=== PATIENT | female | born 1985 | race Caucasian/White ===

== ENCOUNTER 2024-05-07 10:51 | Inpatient (IN) | payer OTHER ==
[~2024-05-07] VITALS: Ht 157.5 cm; Wt 70.3 kg
[2024-05-07 12:33] LABS: CARBON DIOXIDE 26 mEq/L (21-32); CHLORIDE 101 mEq/L (98-107); POTASSIUM 3.4 mEq/L (3.5-5.1); SODIUM 133 mEq/L (136-145)
[2024-05-07 12:34] LABS: CALCIUM 8.4 mg/dL (8.7-10.4)
[2024-05-07 12:39] LABS: CREATININE 0.6 mg/dL (0.6-1.0); GLUCOSE 154 mg/dL (70-105); UREA NITROGEN BLOOD 7 mg/dL (9-23)
[2024-05-07 12:40] LABS: ALANINE AMINOTRANSFERASE 45 IU/L (10-49); ASPARTATE AMINOTRANSFERASE 138 IU/L (<34)
[2024-05-07 12:41] LABS: ALBUMIN 2.8 g/dL (3.2-4.8); BILIRUBIN DIRECT 5.2 mg/dL (<=3.0)
[2024-05-07 12:45] LABS: ETHANOL BLOOD < 10 mg/dL (<10)
[2024-05-07 12:46] LABS: HCG SCREEN NEGATIVE
[2024-05-07 12:48] LABS: INR 1.9; PARTIAL THROMBOPLASTIN TIME 41.5 sec (23.4-31.0); PROTHROMBIN TIME 19.8 sec (9.6-11.0)
[2024-05-07 13:03] LABS: BASOPHILS % 0.5 % (0.0-2.0); EOSINOPHILS % 0.6 % (0.0-5.0); HEMATOCRIT. 25.9 % (36.0-48.0); HEMOGLOBIN. 8.8 g/dL (12.0-16.0); LYMPHOCYTES % 14.8 % (20.0-50.0); MEAN CORPUSCULAR HEMOGLOBIN 39.6 pg (28.0-32.0); MEAN CORPUSCULAR HGB CONC 33.9 g/dL (31.0-37.0); MEAN CORPUSCULAR VOLUME 116.6 fL (81.0-99.0); MONOCYTES % 11.1 % (2.0-8.0); RED BLOOD CELL COUNT 2.22 mill/uL (4.2-5.4); RED CELL DISTRIBUTION WIDTH 16.9 % (11.6-14.6); WHITE BLOOD COUNT 5.3 x1000/uL (4.5-11.0)
[2024-05-07 13:20] LABS: DIFFERENTIAL COMMENT 1
[2024-05-07 13:21] LABS: ADD RBC MORPHOLOGY YES
[2024-05-07 14:01] LABS: PLATELET 75 x1000/uL (130-400)
[2024-05-07 14:04] LABS: ANISOCYTOSIS 1+
[2024-05-07 14:15] LABS: PLATELET ESTIMATE DECREASED
[2024-05-07] MEDS: KETOROLAC 30MG/ML VIAL IM ONE (15:26)
[2024-05-07] MEDS: LORAZEPAM 0.5MG TABLET PO ONE (15:27)
[2024-05-07 20:00] VITALS: BP 127/71; PULSE 92; RESP 18; TEMP 37.39188; O2SAT 97
[2024-05-07 22:30] VITALS: BP 127/71; PULSE 92; RESP 20; TEMP 37.4188
[2024-05-08] VITALS: BP 110/98; PULSE 95; RESP 18; TEMP 37.00296; O2SAT 98
[2024-05-08 04:00] VITALS: BP 113/59; PULSE 102; RESP 18; TEMP 37.2252; O2SAT 96
[2024-05-08 08:02] LABS: INR 2.1; PROTHROMBIN TIME 22.1 sec (9.6-11.0)
[2024-05-08 08:03] LABS: MEAN CORPUSCULAR HEMOGLOBIN 39.1 pg (28.0-32.0); MEAN CORPUSCULAR HGB CONC 33.3 g/dL (31.0-37.0); MEAN CORPUSCULAR VOLUME 117.5 fL (81.0-99.0); PLATELET 61 x1000/uL (130-400); RED BLOOD CELL COUNT 1.69 mill/uL (4.2-5.4); RED CELL DISTRIBUTION WIDTH 17.2 % (11.6-14.6); WHITE BLOOD COUNT 5.8 x1000/uL (4.5-11.0)
[2024-05-08 08:06] LABS: CHLORIDE 102 mEq/L (98-107); POTASSIUM 3.8 mEq/L (3.5-5.1); SODIUM 135 mEq/L (136-145)
[2024-05-08 08:07] LABS: CARBON DIOXIDE 28 mEq/L (21-32)
[2024-05-08 08:10] LABS: HEMATOCRIT 19.8 % (36.0-48.0); HEMOGLOBIN 6.6 g/dL (12.0-16.0)
[2024-05-08 08:12] LABS: CREATININE 0.5 mg/dL (0.6-1.0); GLUCOSE 89 mg/dL (70-105); UREA NITROGEN BLOOD 9 mg/dL (9-23)
[2024-05-08 08:14] LABS: ALANINE AMINOTRANSFERASE 36 IU/L (10-49); ALBUMIN 2.3 g/dL (3.2-4.8); ASPARTATE AMINOTRANSFERASE 109 IU/L (<34)
[2024-05-08 08:15] LABS: PROTEIN TOTAL 6.5 g/dL (6.0-8.3)
[2024-05-08] MEDS ORDERED: NALOXONE HCL 0.4MG/ML VIAL IV PRN (08:15)
[2024-05-08 08:38] LABS: HEPATITIS B SURFACE ANTIGEN NEGATIVE (Negative)
[2024-05-08 08:59] LABS: HEPATITIS C AB NON REACTIVE (Neg) (Negative)
[2024-05-08] MEDS ORDERED: HEPARIN 5000 UNITS/ML VIAL SUBCUT SCH ×2 (09:00)
[2024-05-08] MEDS: FOLIC ACID/VITAMIN B COMP W-C TABLET PO SCH (09:29)
[2024-05-08] MEDS: MULTIVITAMINS,THER W-MINERALS TABLET PO SCH (09:29)
[2024-05-08] MEDS: THIAMINE HCL 100MG TABLET PO SCH (09:30)
[2024-05-08] MEDS: GABAPENTIN 300MG CAPSULE PO SCH (09:30)
[2024-05-08] MEDS: DEXT 5%/0.9% NACL KCL 20MEQ/L 1,000 ML IV SCH (10:00)
[2024-05-08] MEDS: CHLORDIAZEPOXIDE 25MG CAPSULE PO SCH (12:00)
[2024-05-08] MEDS: PANTOPRAZOLE SODIUM 40 MG/VIAL IV SCH (12:05)
[2024-05-08 12:52] LABS: HEMATOCRIT 20.6 % (36.0-48.0); HEMOGLOBIN 6.9 g/dL (12.0-16.0)
[2024-05-08] MEDS: SUCRALFATE 1G TABLET PO SCH (18:04)
[2024-05-08 20:00] VITALS: BP 115/57; PULSE 83; RESP 18; TEMP 36.72516; O2SAT 100
[2024-05-08] MEDS: TRAMADOL 50MG TABLET PO PRN (20:27)
[2024-05-08 21:55] LABS: HEMATOCRIT 18.2 % (36.0-48.0); HEMOGLOBIN 6.1 g/dL (12.0-16.0)
[2024-05-08 22:18] VITALS: BP 106/58; PULSE 93; RESP 20; TEMP 37.89192
[2024-05-08 22:33] VITALS: BP 103/56; PULSE 97; RESP 20; TEMP 37.39188
[2024-05-08 23:33] VITALS: BP 112/53; PULSE 101; RESP 18; TEMP 37.00296
[2024-05-09] VITALS (14 sets, daily range): BP systolic 98–122; BP diastolic 55–75; PULSE 75–94; RESP 16–18; TEMP 36.61404–37.39188; O2SAT 95–100
[2024-05-09 01:47] LABS: HEMATOCRIT 15.8 % (36.0-48.0); HEMOGLOBIN 5.4 g/dL (12.0-16.0)
[2024-05-09 09:37] LABS: CHLORIDE 101 mEq/L (98-107); POTASSIUM 3.6 mEq/L (3.5-5.1); SODIUM 133 mEq/L (136-145)
[2024-05-09 09:38] LABS: CALCIUM 8.4 mg/dL (8.7-10.4); CARBON DIOXIDE 26 mEq/L (21-32)
[2024-05-09 09:42] LABS: IRON 107 ug/dL (50-170)
[2024-05-09 09:43] LABS: CREATININE 0.5 mg/dL (0.6-1.0); GLUCOSE 102 mg/dL (70-105); UREA NITROGEN BLOOD 9 mg/dL (9-23)
[2024-05-09 09:44] LABS: AMMONIA 62 uMol/L (<32)
[2024-05-09 09:45] LABS: ALANINE AMINOTRANSFERASE 41 IU/L (10-49); ALBUMIN 2.9 g/dL (3.2-4.8); ASPARTATE AMINOTRANSFERASE 114 IU/L (<34); BILIRUBIN TOTAL 15.8 mg/dL (0.1-1.0); PROTEIN TOTAL 7.6 g/dL (6.0-8.3); TOTAL IRON BINDING CAPACITY 216 ug/dl (250-425)
[2024-05-09 09:47] LABS: FERRITIN 335 ng/mL (10-291); FOLIC ACID (FOLATE) SERUM > 20.00 ng/mL (>5.38); VITAMIN B12 SERUM 1384 pg/mL (211-911)
[2024-05-09 10:19] LABS: HEMATOCRIT 28.2 % (36.0-48.0); HEMOGLOBIN 9.7 g/dL (12.0-16.0); MEAN CORPUSCULAR HEMOGLOBIN 38.7 pg (28.0-32.0); MEAN CORPUSCULAR HGB CONC 34.3 g/dL (31.0-37.0); MEAN CORPUSCULAR VOLUME 112.7 fL (81.0-99.0); RED CELL DISTRIBUTION WIDTH 25.6 % (11.6-14.6); WHITE BLOOD COUNT 5.2 x1000/uL (4.5-11.0)
[2024-05-09 11:40] LABS: PLATELET 65 x1000/uL (130-400)
[2024-05-09 16:16] LABS: HEMATOCRIT 23.7 % (36.0-48.0); HEMOGLOBIN 8.7 g/dL (12.0-16.0)
[2024-05-09] MEDS: PHYTONADIONE 10MG/ML INJ SUBCUT SCH (22:42)
[2024-05-10] VITALS: BP 102/64; PULSE 96; RESP 18; TEMP 37.00296; O2SAT 97
[2024-05-10 01:00] LABS: HEMOGLOBIN 7.6 g/dL (12.0-16.0)
[2024-05-10 01:13] LABS: HEMATOCRIT 20.9 % (36.0-48.0)
[2024-05-10 02:53] LABS: HEMATOCRIT. 21.2 % (36.0-48.0); HEMOGLOBIN. 7.5 g/dL (12.0-16.0); MEAN CORPUSCULAR HEMOGLOBIN 41.9 pg (28.0-32.0); MEAN CORPUSCULAR HGB CONC 35.4 g/dL (31.0-37.0); MEAN CORPUSCULAR VOLUME 118.3 fL (81.0-99.0); RED BLOOD CELL COUNT 1.79 mill/uL (4.2-5.4); RED CELL DISTRIBUTION WIDTH 26.5 % (11.6-14.6)
[2024-05-10 03:04] LABS: DIFFERENTIAL COMMENT 1
[2024-05-10 03:06] LABS: CHLORIDE 102 mEq/L (98-107); POTASSIUM 3.9 mEq/L (3.5-5.1); SODIUM 134 mEq/L (136-145)
[2024-05-10 03:07] LABS: CALCIUM 7.7 mg/dL (8.7-10.4); CARBON DIOXIDE 25 mEq/L (21-32)
[2024-05-10 03:10] LABS: PROTHROMBIN TIME 21.4 sec (9.6-11.0)
[2024-05-10 03:12] LABS: CREATININE 0.5 mg/dL (0.6-1.0); GLUCOSE 115 mg/dL (70-105); UREA NITROGEN BLOOD 8 mg/dL (9-23)
[2024-05-10 03:14] LABS: ALANINE AMINOTRANSFERASE 33 IU/L (10-49); ALBUMIN 2.3 g/dL (3.2-4.8); ASPARTATE AMINOTRANSFERASE 92 IU/L (<34); BILIRUBIN DIRECT 5.6 mg/dL (<=3.0); LACTATE DEHYDROGENASE 416 IU/L (120-246)
[2024-05-10 03:15] LABS: BILIRUBIN TOTAL 15.1 mg/dL (0.1-1.0); PROTEIN TOTAL 6.4 g/dL (6.0-8.3)
[2024-05-10 04:00] VITALS: BP 115/75; PULSE 98; RESP 18; TEMP 37.11408; O2SAT 97
[2024-05-10 05:11] LABS: MEAN PLATELET VOLUME 8.7 fl (7.4-10.4); PLATELET 59 x1000/uL (130-400)
[2024-05-10 08:00] VITALS: BP 111/73; PULSE 95; RESP 19; TEMP 36.89184; O2SAT 98
[2024-05-10 09:14] LABS: ANISOCYTOSIS 2+; NUCLEATED RED BLOOD CELLS 1 /100 WBC; PLATELET ESTIMATE MARKEDLY DECREASED
[2024-05-10 12:00] VITALS: BP 150/89; PULSE 96; RESP 18; TEMP 37.16964; O2SAT 98
[2024-05-10] MEDS ORDERED: LIDOCAINE HCL 1% 10 MG/ML 10ML VIAL ONE (14:07)
[2024-05-10] MEDS ORDERED: PROPOFOL 200MG/20ML VIAL IV ONE (14:08)
[2024-05-10] MEDS ORDERED: PHENYLEPHRINE HCL 10MG/ML 1ML IV ONE (14:10)
[2024-05-10 20:00] VITALS: BP 116/74; PULSE 110; RESP 18; TEMP 38.50308; O2SAT 99
[2024-05-11] VITALS: BP 112/63; PULSE 102; RESP 18; TEMP 38.00304; O2SAT 96
[2024-05-11 04:00] VITALS: BP 115/67; PULSE 99; RESP 18; TEMP 37.05852; O2SAT 98
[2024-05-11 06:53] LABS: ALANINE AMINOTRANSFERASE 31 IU/L (10-49); ALBUMIN 2.3 g/dL (3.2-4.8); ASPARTATE AMINOTRANSFERASE 89 IU/L (<34); BILIRUBIN DIRECT 7.1 mg/dL (<=3.0); PROTEIN TOTAL 6.2 g/dL (6.0-8.3)
[2024-05-11 08:00] VITALS: BP 120/72; PULSE 106; RESP 20; TEMP 36.78072; O2SAT 96
[2024-05-11 11:21] LABS: CALCIUM 7.8 mg/dL (8.7-10.4); CARBON DIOXIDE 23 mEq/L (21-32); CHLORIDE 105 mEq/L (98-107); CREATININE 0.5 mg/dL (0.6-1.0); GLUCOSE 105 mg/dL (70-105); POTASSIUM 4.2 mEq/L (3.5-5.1); SODIUM 135 mEq/L (136-145); UREA NITROGEN BLOOD 6 mg/dL (9-23)
[2024-05-11 11:22] LABS: ALANINE AMINOTRANSFERASE 31 IU/L (10-49)
[2024-05-11 11:23] LABS: ALBUMIN 2.3 g/dL (3.2-4.8); ASPARTATE AMINOTRANSFERASE 89 IU/L (<34); PROTEIN TOTAL 6.2 g/dL (6.0-8.3)
[2024-05-11 11:52] LABS: MEAN CORPUSCULAR HEMOGLOBIN 42.1 pg (28.0-32.0); MEAN CORPUSCULAR HGB CONC 34.7 g/dL (31.0-37.0); MEAN CORPUSCULAR VOLUME 121.4 fL (81.0-99.0); RED BLOOD CELL COUNT 1.51 mill/uL (4.2-5.4); RED CELL DISTRIBUTION WIDTH 27.7 % (11.6-14.6)
[2024-05-11 12:00] VITALS: BP 104/51; PULSE 114; RESP 19; TEMP 36.6696; O2SAT 97
[2024-05-11 12:00] LABS: DIFFERENTIAL COMMENT 1
[2024-05-11 12:01] LABS: HEMATOCRIT. 18.3 % (36.0-48.0); HEMOGLOBIN. 6.4 g/dL (12.0-16.0)
[2024-05-11 13:58] LABS: NUCLEATED RED BLOOD CELLS 1 /100 WBC
[2024-05-11 13:59] LABS: ROULEAUX 2+
[2024-05-11 14:00] LABS: ANISOCYTOSIS 2+
[2024-05-11 14:01] LABS: PLATELET 66 x1000/uL (130-400); PLATELET ESTIMATE DECREASED
[2024-05-11] MEDS ORDERED: NALOXONE HCL 0.4MG/ML VIAL IV PRN (14:15)
[2024-05-11 16:00] VITALS: BP 122/64; PULSE 104; RESP 19; TEMP 37.00296; O2SAT 98
[2024-05-11] MEDS: PIPERACILLIN/TAZO 3.375G/50ML 50 ML IV SCH (16:04)
[2024-05-11 17:21] LABS: AMMONIA 55 uMol/L (<32)
[2024-05-11 20:00] VITALS: BP 119/61; PULSE 83; RESP 16; TEMP 36.33624; O2SAT 98
[2024-05-11] MEDS: CARVEDILOL 3.125 MG TABLET PO SCH (20:34)
[2024-05-12] VITALS (11 sets, daily range): BP systolic 98–134; BP diastolic 52–76; PULSE 68–95; RESP 16–19; TEMP 36.3918–37.72524; O2SAT 98–100
[2024-05-12 07:21] LABS: CHLORIDE 106 mEq/L (98-107); POTASSIUM 4.1 mEq/L (3.5-5.1); SODIUM 135 mEq/L (136-145)
[2024-05-12 07:22] LABS: CALCIUM 7.9 mg/dL (8.7-10.4); CARBON DIOXIDE 22 mEq/L (21-32)
[2024-05-12 07:28] LABS: CREATININE 0.5 mg/dL (0.6-1.0); GLUCOSE 110 mg/dL (70-105); UREA NITROGEN BLOOD 7 mg/dL (9-23)
[2024-05-12 07:30] LABS: BILIRUBIN TOTAL 18.8 mg/dL (0.1-1.0)
[2024-05-12 08:01] LABS: HEMOGLOBIN. 7.4 g/dL (12.0-16.0); MEAN CORPUSCULAR HEMOGLOBIN 42.6 pg (28.0-32.0); MEAN CORPUSCULAR HGB CONC 35.5 g/dL (31.0-37.0); RED BLOOD CELL COUNT 1.74 mill/uL (4.2-5.4); RED CELL DISTRIBUTION WIDTH 31.8 % (11.6-14.6); WHITE BLOOD COUNT 6.3 x1000/uL (4.5-11.0)
[2024-05-12 09:30] LABS: DIFFERENTIAL COMMENT 1
[2024-05-12 09:35] LABS: HEMATOCRIT. 20.8 % (36.0-48.0)
[2024-05-12] MEDS: LORAZEPAM 0.5MG TABLET PO SCH (12:35)
[2024-05-12 13:45] LABS: PLATELET 71 x1000/uL (130-400)
[2024-05-12 13:52] LABS: PLATELET ESTIMATE DECREASED; ROULEAUX 2+
[2024-05-12 13:53] LABS: ANISOCYTOSIS 3+
[2024-05-12] MEDS: LACTULOSE 20G/30ML UDC PO SCH (21:00)
[2024-05-12] MEDS: FUROSEMIDE 40MG/4ML VIAL IVP NR (21:00)
[2024-05-12 21:52] LABS: HEMATOCRIT 22.5 % (36.0-48.0); HEMOGLOBIN 7.8 g/dL (12.0-16.0); MEAN CORPUSCULAR HEMOGLOBIN 42.4 pg (28.0-32.0); MEAN CORPUSCULAR HGB CONC 34.8 g/dL (31.0-37.0); MEAN CORPUSCULAR VOLUME 121.9 fL (81.0-99.0); PLATELET 70 x1000/uL (130-400); RED BLOOD CELL COUNT 1.85 mill/uL (4.2-5.4); RED CELL DISTRIBUTION WIDTH 30.7 % (11.6-14.6); WHITE BLOOD COUNT 6.2 x1000/uL (4.5-11.0)
[2024-05-13] VITALS (10 sets, daily range): BP systolic 102–133; BP diastolic 52–73; PULSE 69–82; RESP 18–19; TEMP 35.33616–37.11408; O2SAT 96–99
[2024-05-13 07:27] LABS: CHLORIDE 108 mEq/L (98-107); POTASSIUM 4.4 mEq/L (3.5-5.1); SODIUM 135 mEq/L (136-145)
[2024-05-13 07:28] LABS: CALCIUM 7.7 mg/dL (8.7-10.4); CARBON DIOXIDE 22 mEq/L (21-32)
[2024-05-13 07:33] LABS: CREATININE 0.5 mg/dL (0.6-1.0); GLUCOSE 103 mg/dL (70-105); UREA NITROGEN BLOOD 7 mg/dL (9-23)
[2024-05-13 07:35] LABS: ALANINE AMINOTRANSFERASE 25 IU/L (10-49); ASPARTATE AMINOTRANSFERASE 77 IU/L (<34); BILIRUBIN DIRECT 9.5 mg/dL (<=3.0)
[2024-05-13 07:36] LABS: BILIRUBIN TOTAL 19.1 mg/dL (0.1-1.0); PROTEIN TOTAL 5.8 g/dL (6.0-8.3)
[2024-05-13 08:32] LABS: MEAN CORPUSCULAR HEMOGLOBIN 41.1 pg (28.0-32.0); MEAN CORPUSCULAR HGB CONC 34.5 g/dL (31.0-37.0); MEAN CORPUSCULAR VOLUME 119.2 fL (81.0-99.0); MEAN PLATELET VOLUME 8.7 fl (7.4-10.4); PLATELET 69 x1000/uL (130-400); RED BLOOD CELL COUNT 1.65 mill/uL (4.2-5.4); RED CELL DISTRIBUTION WIDTH 31.2 % (11.6-14.6)
[2024-05-13 09:29] LABS: DIFFERENTIAL COMMENT 1
[2024-05-13 09:35] LABS: HEMATOCRIT. 19.7 % (36.0-48.0); HEMOGLOBIN. 6.8 g/dL (12.0-16.0)
[2024-05-13 18:07] LABS: ANISOCYTOSIS 3+; PLATELET ESTIMATE DECREASED
[2024-05-14 02:18] LABS: HEMATOCRIT 24.6 % (36.0-48.0); HEMOGLOBIN 8.6 g/dL (12.0-16.0)
[2024-05-14] MEDS: TRAMADOL 50MG TABLET PO PRN (02:55)
[2024-05-14 04:00] VITALS: BP 106/61; PULSE 71; RESP 19; TEMP 36.61404; O2SAT 100
[2024-05-14 06:38] LABS: HEMATOCRIT. 25.7 % (36.0-48.0); MEAN CORPUSCULAR HEMOGLOBIN 40.1 pg (28.0-32.0); MEAN CORPUSCULAR HGB CONC 35.1 g/dL (31.0-37.0); MEAN CORPUSCULAR VOLUME 114.2 fL (81.0-99.0); RED BLOOD CELL COUNT 2.25 mill/uL (4.2-5.4); RED CELL DISTRIBUTION WIDTH 32.1 % (11.6-14.6)
[2024-05-14 06:45] LABS: CARBON DIOXIDE 24 mEq/L (21-32); CHLORIDE 105 mEq/L (98-107); POTASSIUM 4.1 mEq/L (3.5-5.1); SODIUM 133 mEq/L (136-145)
[2024-05-14 06:46] LABS: CALCIUM 8.3 mg/dL (8.7-10.4)
[2024-05-14 06:50] LABS: CREATININE 0.4 mg/dL (0.6-1.0); GLUCOSE 110 mg/dL (70-105)
[2024-05-14 06:51] LABS: AMMONIA 29 uMol/L (<32); UREA NITROGEN BLOOD 8 mg/dL (9-23)
[2024-05-14 06:52] LABS: ALANINE AMINOTRANSFERASE 32 IU/L (10-49); ALBUMIN 2.5 g/dL (3.2-4.8); ASPARTATE AMINOTRANSFERASE 96 IU/L (<34)
[2024-05-14 06:53] LABS: BILIRUBIN DIRECT 12.4 mg/dL (<=3.0); BILIRUBIN TOTAL 25.3 mg/dL (0.1-1.0); PROTEIN TOTAL 7.1 g/dL (6.0-8.3)
[2024-05-14 07:09] LABS: DIFFERENTIAL COMMENT 1
[2024-05-14 08:00] VITALS: BP 96/50; PULSE 79; RESP 19; TEMP 36.78072; O2SAT 99
[2024-05-14 09:11] LABS: INR 1.8; PROTHROMBIN TIME 18.9 sec (9.6-11.0)
[2024-05-14 10:21] LABS: NUCLEATED RED BLOOD CELLS 2 /100 WBC
[2024-05-14 10:22] LABS: ROULEAUX 2+
[2024-05-14 10:23] LABS: ANISOCYTOSIS 2+
[2024-05-14 10:24] LABS: PLATELET ESTIMATE DECREASED
[2024-05-14 10:25] LABS: MEAN PLATELET VOLUME 9.1 fl (7.4-10.4); PLATELET 83 x1000/uL (130-400)
[2024-05-14 12:51] LABS: HEMOGLOBIN 9.4 g/dL (12.0-16.0)
[2024-05-14 16:00] VITALS: BP 122/71; PULSE 88; RESP 17; TEMP 36.72516; O2SAT 99
[2024-05-14 20:00] VITALS: BP 108/55; PULSE 86; RESP 19; TEMP 36.61404; O2SAT 96
[2024-05-14 21:27] LABS: HEMATOCRIT 24.2 % (36.0-48.0); HEMOGLOBIN 8.5 g/dL (12.0-16.0)
[2024-05-15] VITALS: BP 101/54; PULSE 87; RESP 19; TEMP 37.7808; O2SAT 100
[2024-05-15 01:05] LABS: HEMATOCRIT 22.1 % (36.0-48.0); HEMOGLOBIN 7.8 g/dL (12.0-16.0)
[2024-05-15 04:00] VITALS: BP 106/59; PULSE 85; RESP 19; TEMP 36.72516; O2SAT 98
[2024-05-15 07:47] LABS: CARBON DIOXIDE 24 mEq/L (21-32); CHLORIDE 107 mEq/L (98-107); POTASSIUM 3.9 mEq/L (3.5-5.1); SODIUM 136 mEq/L (136-145)
[2024-05-15 07:48] LABS: CALCIUM 7.9 mg/dL (8.7-10.4)
[2024-05-15 07:52] LABS: CREATININE 0.4 mg/dL (0.6-1.0)
[2024-05-15 07:53] LABS: GLUCOSE 105 mg/dL (70-105); UREA NITROGEN BLOOD 5 mg/dL (9-23)
[2024-05-15 07:54] LABS: ALANINE AMINOTRANSFERASE 30 IU/L (10-49); ASPARTATE AMINOTRANSFERASE 89 IU/L (<34)
[2024-05-15 07:55] LABS: ALBUMIN 2.2 g/dL (3.2-4.8); BILIRUBIN DIRECT 11.3 mg/dL (<=3.0); BILIRUBIN TOTAL 21.8 mg/dL (0.1-1.0)
[2024-05-15 07:56] LABS: PROTEIN TOTAL 6.3 g/dL (6.0-8.3)
[2024-05-15 08:00] VITALS: BP 104/54; PULSE 88; RESP 17; TEMP 37.89192; O2SAT 99
[2024-05-15 08:40] LABS: HEMOGLOBIN. 7.7 g/dL (12.0-16.0); MEAN CORPUSCULAR HEMOGLOBIN 39.2 pg (28.0-32.0); MEAN CORPUSCULAR HGB CONC 34.9 g/dL (31.0-37.0); MEAN CORPUSCULAR VOLUME 112.5 fL (81.0-99.0); RED BLOOD CELL COUNT 1.95 mill/uL (4.2-5.4); RED CELL DISTRIBUTION WIDTH 33.4 % (11.6-14.6)
[2024-05-15 08:58] LABS: DIFFERENTIAL COMMENT 1
[2024-05-15 12:00] VITALS: BP 98/58; PULSE 73; RESP 18; TEMP 37.11408; O2SAT 99
[2024-05-15 15:22] LABS: NUCLEATED RED BLOOD CELLS 1 /100 WBC; PLATELET ESTIMATE DECREASED; ROULEAUX 2+
[2024-05-15 15:23] LABS: ANISOCYTOSIS 2+
[2024-05-15 15:25] LABS: PLATELET 84 x1000/uL (130-400)
[2024-05-15] MEDS: SPIRONOLACTONE 25MG TABLET PO SCH (15:57)
[2024-05-15] MEDS: FUROSEMIDE 20MG TABLET PO SCH (15:58)
[2024-05-15 16:00] VITALS: BP 111/63; PULSE 74; RESP 18; TEMP 35.72508; O2SAT 98
[2024-05-15 20:00] VITALS: BP 104/55; PULSE 82; RESP 18; TEMP 36.78072; O2SAT 96
[2024-05-15] MEDS: LACTULOSE 20G/30ML UDC PO SCH (20:39)
[2024-05-15 21:55] LABS: HEMATOCRIT 25.8 % (36.0-48.0); HEMOGLOBIN 8.9 g/dL (12.0-16.0); MEAN CORPUSCULAR HEMOGLOBIN 41.3 pg (28.0-32.0); MEAN CORPUSCULAR HGB CONC 34.5 g/dL (31.0-37.0); PLATELET 88 x1000/uL (130-400); RED BLOOD CELL COUNT 2.15 mill/uL (4.2-5.4); RED CELL DISTRIBUTION WIDTH 34.4 % (11.6-14.6); WHITE BLOOD COUNT 6.4 x1000/uL (4.5-11.0)
[2024-05-15 22:00] LABS: CARBON DIOXIDE 24 mEq/L (21-32); CHLORIDE 106 mEq/L (98-107); POTASSIUM 3.8 mEq/L (3.5-5.1); SODIUM 136 mEq/L (136-145)
[2024-05-15 22:01] LABS: CALCIUM 7.9 mg/dL (8.7-10.4)
[2024-05-15 22:06] LABS: CREATININE 0.4 mg/dL (0.6-1.0); GLUCOSE 106 mg/dL (70-105); UREA NITROGEN BLOOD 7 mg/dL (9-23)
[2024-05-15 22:08] LABS: MEAN CORPUSCULAR VOLUME 119.7 fL (81.0-99.0)
[2024-05-16] VITALS: BP 112/60; PULSE 79; RESP 18; TEMP 36.55848; O2SAT 97
[2024-05-16 04:00] VITALS: BP 109/58; PULSE 80; RESP 18; TEMP 35.94732; O2SAT 96
[2024-05-16] MEDS: DEXT 5%/0.9% NACL 1,000 ML IV SCH (05:30)
[2024-05-16 07:25] LABS: ALANINE AMINOTRANSFERASE 34 IU/L (10-49)
[2024-05-16 07:28] LABS: ALBUMIN 2.4 g/dL (3.2-4.8); ASPARTATE AMINOTRANSFERASE 104 IU/L (<34); BILIRUBIN DIRECT 12.5 mg/dL (<=3.0); PROTEIN TOTAL 6.9 g/dL (6.0-8.3)
[2024-05-16 08:00] VITALS: BP 112/59; PULSE 84; RESP 19; TEMP 36.44736; O2SAT 99
[2024-05-16 12:00] VITALS: BP 114/74; PULSE 89; RESP 20; TEMP 37.00296; O2SAT 98
[2024-05-16 16:00] VITALS: BP 121/74; PULSE 87; RESP 20; TEMP 36.83628; O2SAT 99
[2024-05-16 18:37] VITALS: BP 121/75; PULSE 87; TEMP 98.4; O2SAT 100
== END 2024-05-16 19:29 | disposition home or self-care (01) | DRG 605 ==
LOC: EDBD 11:30 → ER 11:30 → 5WST 15:47 → EDBEDREQTM 15:52 → EDBEDREQ 15:52 → 6EST 21:43
PROVIDERS: ADMIT Internal Medicine; ATTEND Internal Medicine
PROC: 0DB78ZX Excision of Stomach, Pylorus, Via Natural or Artificial Opening Endoscopic, Diagnostic (ICD-10-PCS; principal; 2024-05-07)
PROC: 30233K1 Transfusion of Nonautologous Frozen Plasma into Peripheral Vein, Percutaneous Approach (ICD-10-PCS; 2024-05-08)
PROC: 30233N0 Transfusion of Autologous Red Blood Cells into Peripheral Vein, Percutaneous Approach (ICD-10-PCS; 2024-05-09)
DX: S70.01XA Contusion of right hip, initial encounter (principal); D58.9 Hereditary hemolytic anemia, unspecified; F10.131 Alcohol abuse with withdrawal delirium; D53.9 Nutritional anemia, unspecified; K31.89 Other diseases of stomach and duodenum; K80.20 Calculus of gallbladder without cholecystitis without obstruction; I10 Essential (primary) hypertension; R58 Hemorrhage, not elsewhere classified; E87.6 Hypokalemia; E88.09 Other disorders of plasma-protein metabolism, not elsewhere classified; K29.70 Gastritis, unspecified, without bleeding; K70.10 Alcoholic hepatitis without ascites; K74.60 Unspecified cirrhosis of liver; D69.6 Thrombocytopenia, unspecified; K76.82 Hepatic encephalopathy; K21.9 Gastro-esophageal reflux disease without esophagitis; R50.9 Fever, unspecified; F41.9 Anxiety disorder, unspecified; I86.4 Gastric varices; K29.50 Unspecified chronic gastritis without bleeding; F12.90 Cannabis use, unspecified, uncomplicated; X58.XXXA Exposure to other specified factors, initial encounter; Y90.0 Blood alcohol level of less than 20 mg/100 ml; I87.8 Other specified disorders of veins; Z79.899 Other long term (current) drug therapy; Y93.89 Activity, other specified; Y92.89 Other specified places as the place of occurrence of the external cause; Y99.8 Other external cause status
CPT/HCPCS: 36415; 73502; 74176; 76700; 80048; 80053; 80076; 80320; 82105; 82140; 82247; 82248; 82607; 82728; 82746; 83540; 83550; 83615; 83735; 84145; 84703; 85014; 85018; 85025; 85027; 85044; 86705; 86850; 86870; 86900; 86920; 86927; 87340; 88305; 88312; 88313; 93923; 93970; 99285; J1885; J2470; J2543; J2704; J3430; J3490; J7042; P9016; P9017; G0480